=== PATIENT | female | born 1955 | race Caucasian/White ===

== ENCOUNTER 2025-02-08 10:12 | Emergency (ER) | payer BC, MEDICARE, SELFPAY ==
[2025-02-08] VITALS (7 sets, daily range): BP systolic 109–150; BP diastolic 67–101; BMI 24.5
[2025-02-08 10:44] LABS: % Basophils 0.6 % (0-2); % Eosinophils 0.4 % (0-6); % Lymphocytes 19.8 % (20.5-51.1); % Monocytes 4.7 % (1.7-9.3); % Neutrophils 74.5 % (42.2-75.2); Absolute Lymphocytes 0.9 10^3/uL (1.2-3.4); Absolute Monocytes 0.2 10^3/uL (0.1-0.6); Absolute Neutrophils 3.5 10^3/uL (1.4-6.5); Hematocrit 41.2 % (37.0-47.0); Hemoglobin 14.6 g/dL (12.0-16.0); Mean Corp Hgb Conc. 35.4 g/dL (33.0-37.0); Mean Corpuscular Hgb 32.7 pg (27.0-31.0); Mean Corpuscular Volume 92.2 fL (81.0-99.0); Mean Platelet Volume 9.4 fL (7.4-10.4); Nucleated Red Blood Cells % 0 %; Platelet Count 276 10^3/uL (130-400); Red Blood Cell Count 4.47 10^6/uL (4.20-5.40); Red Cell Dist. Width 12.8 % (11.5-14.5); White Blood Cell Count 4.6 10^3/uL (4.8-10.8)
--- NOTE | 2025-02-08 10:57 | ED.GENMED ---
History of Present Illness
General
Chief Complaint: Abdominal Pain
Source: patient and ambulance crew
Exam Limitations: none
Time Seen by Provider: 02/08/25 10:35
Nursing documentation reviewed up to this point in time: agreed with
History of Present Illness
History of Present Illness:
The patient is a 69-year-old female presenting with abrupt onset of right-sided lower abdominal pain. The pain began when the patient moved a certain way and has remained since. She denies having experienced this pain previously. The patient reports
no urinary symptoms, nausea, vomiting, diarrhea, constipation, or history of kidney stones. Pain is not elicited on palpation of the abdomen, nor with specific movements assessed during the examination. The patient received Ketorolac for pain relief
prior to evaluation, which provided some relief.
Review of Systems
Review of Systems
Allergies reviewed?: Yes
All Other Systems: ROS reviewed and negative except as documented in HPI and ROS
Phy Exam
Physical Exam
Physical Exam:
GENERAL: Alert , in no apparent distress
EYE: pupils equal and reactive
NECK: Supple, no significant adenopathy.
ENT: o/p clr, mmm.
CARDIAC: Regular rate and rhythm .
LUNGS: Clear breath sounds bilaterally, no acute respiratory distress, no wheezes/rales/rhonchi
ABDOMEN: Soft, without focal tenderness, no r/g, no cvat
NEUROLOGICAL: Alert and oriented, no focal neuro deficits
SKIN: Warm and dry, skin intact.
MUSCULOSKELETAL: No edema, well perfused.
PSYCH: Normal and appropriate interaction.
Course
Orders/Labs/Results
Orders:
Orders
02/08/25 10:34
IV Insert/Care/Rem.- Treatment PRN
02/08/25 10:35
Complete Blood Count/With Diff Urgent
Comprehensive Metabolic Panel Urgent
Lipase Urgent
02/08/25 10:57
CT Abd/pel Without Iv Or Oral Urgent
Comment:
Reason For Exam: right flank pain
Urinalysis Reflex To Culture Urgent
Diazepam [Valium] 5 mg PO NOW STA
Abnormal Lab Results
02/08/25
10:35
WBC 4.6 L 10^3/uL
(4.8-10.8)
MCH 32.7 H pg
(27.0-31.0)
Absolute Lymphs (auto) 0.9 L 10^3/uL
(1.2-3.4)
Lymphocytes % 19.8 L %
(20.5-51.1)
Chloride 111 H mmol/L
(98-107)
Glucose 113 H mg/dl
(70-99)
02/08/25 10:35
02/08/25 10:35
Vital Signs
Initial and Last Documented VS:
Initial Vital Signs
BP Pulse Ox
150/89 97
02/08/25 10:15 02/08/25 10:15
Last Documented Vital Signs
Temp Pulse Resp BP Pulse Ox
98.3 F 85 26 150/89 94
02/08/25 10:18 02/08/25 11:00 02/08/25 11:00 02/08/25 10:18 02/08/25 11:00
MDM/Problems Addressed
MDM/Problems Addressed:
We will proceed with a computed tomography (CT) scan to investigate the possibility of a kidney stone or any other underlying causes. While awaiting results, the patient will be given treatment for muscle spasm as a potential etiology for her pain.
*Pulse Oximetry
SaO2: 96
Oxygen Mode of Delivery: Room air
ED Attending Note
-
Portions of this chart may have been created with voice recognition software.� Occasional wrong word or��sound alike� substitutions may have occurred due to the inherent limitations of voice recognition software.
Discharge Plan
Departure
Prescriptions:
No Action
lorazepam [Ativan] 0.5 mg Tablet
0.5 mg PO HS PRN (Reason: anxiety)
Referrals:
Sandra Bauer CRNP [Family Provider, Family Practice]
Interventions
Interventions:
*Risk Screen - Suicide Last Done: 02/08/25 10:18
*General Assessment Last Done: 02/08/25 10:18
*Neglect/Abuse Screening Last Done: 02/08/25 10:18
*ED- Fall Risk Assessment Last Done: 02/08/25 10:18
*ED COVID-19 Vaccine History Last Done: 02/08/25 10:24
AB-Yulgvk-Mhcuqgrdzi Assessment Last Done: 02/08/25 10:40
Discharge Date and Time
Print Language: PASHTO
[2025-02-08 11:07] LABS: ALT (SGPT) 17 U/L (0-35); AST (SGOT) 27 U/L (14-36); Alkaline Phosphatase 56 U/L (38-126); Blood Urea Nitrogen 12 mg/dl (7-17); Calcium 9.5 mg/dl (8.4-10.2); Carbon Dioxide 24 mmol/L (22-30); Chloride 111 mmol/L (98-107); Estimated Creatinine Clearance 59 ml/min; Glucose 113 mg/dl (70-99); Lipase 80 U/L (23-300); Potassium 4.3 mmol/L (3.5-5.1); Sodium 143 mmol/L (135-145); Total Bilirubin 0.4 mg/dl (0.2-1.3); Total Protein 7.6 g/dl (6.3-8.2); eGFR > 60.00
[2025-02-08] MEDS: VALIUM 5 MG PO (11:15)
[2025-02-08 13:56] LABS: Urine Albumin 1+ (Neg - Trace); Urine Bilirubin Negative (Negative); Urine Character Clear (Clear); Urine Color Yellow; Urine Glucose Negative (Negative); Urine Ketone 3+ (Negative); Urine Leukocyte Negative (Negative); Urine Nitrite Negative (Negative); Urine Occult Blood 3+ (Negative); Urine Specific Gravity 1.025 (<1.030); Urine Urobilinogen Negative (Neg - 1+)
[2025-02-08] MEDS: ZOFRAN 4 MG IV (14:04)
[2025-02-08] MEDS: DILAUDID 0.5 MG IV (14:04)
[2025-02-08 14:49] LABS: Urine Bacteria Moderate (Negative); Urine Mucus Few; Urine Squamous Cell 0-2 /LPF (Few); Urine White Cell None Seen /HPF (0-5)
[2025-02-08 14:50] LABS: Urine Red Blood Cell 0-2 /HPF (0-2)
[2025-02-08 16:10] LABS: D-Dimer < 0.27 ug/mlFEU (0.00-0.50)
[2025-02-08] MEDS: PERCOCET 5/325 1 TABLET PO (16:33)
== END 2025-02-08 16:45 | disposition home or self-care (01) ==
LOC: EMR 10:12
PROVIDERS: Nurse Practitioner; Physician Assistant; EMERGENCY PHYSICIAN Emergency Medicine; FAMILY PHYSICIAN Nurse Practitioner
DX: R10.31 Right lower quadrant pain (principal); M62.838 Other muscle spasm; M19.90 Unspecified osteoarthritis, unspecified site; F41.9 Anxiety disorder, unspecified
CPT/HCPCS: 99285; 96374; 96375; 71046; 74176; 80053; 81003; 81015; 83690; 85025; 85379; 87086

== ENCOUNTER → 2025-03-25 13:02 | Outpatient (REF) | payer BC, MEDICARE, SELFPAY | LOC: WDC 13:02 | PROVIDERS: ATTENDING PHYSICIAN Nurse Practitioner | DX: Z12.31 Encounter for screening mammogram for malignant neoplasm of breast (principal); N64.4 Mastodynia; Z98.82 Breast implant status | CPT/HCPCS: 76642; 77062; 77066 ==